=== PATIENT | female | born 2000 | race Caucasian/White ===

== ENCOUNTER 2020-06-23 22:49 | Emergency (ER) | payer OTHER, SELFPAY ==
[2020-06-23 22:51] VITALS: BP 159/93; PULSE 103; RESP 16; TEMP 36.4; O2SAT 100
--- NOTE | 2020-06-23 23:11 | ED.BACK ---
HPI - Back Pain/Injury General Chief Complaint: Back Pain/Injury Stated Complaint: sciatica Time Seen by Provider: 06/23/20 23:02 History of Present Illness HPI Narrative: 19 yo female w/ h/o sciatica presents to the ED for sciatica. She reports that she recently finished physical therapy for sciatica and her symptoms have returned. She has pain in the right buttock radiating down the back of the leg. mild tingling. No weakness, fever, chills, trauma. Related Data Allergies Allergy/AdvReac Type Severity Reaction Status Date / Time No Known Allergies Allergy Verified 07/31/19 13:14 Review of Systems Review of Systems: All systems reviewed & are unremarkable except as noted in HPI and below Constitutional: Constitutional: Denies chills, Denies fever(s) and Denies weakness Cardiovascular: Cardiovascular: Denies chest pain Respiratory: Respiratory: Denies dyspnea Gastrointestinal: Gastrointestinal: Denies nausea and Denies vomiting Musculoskeletal: Musculoskeletal: Reports back pain Neurologic: Denies dizziness and Denies weakness [facility] Past Medical History Medical History (Updated 06/23/20 @ 23:21 by Carlos Purvis MD) Sciatica Social History Social History (Updated 06/23/20 @ 23:19 by Carlos Purvis MD) Smoking status: Never smoker Exam Const: General: healthy appearing, no acute distress and alert Orientation/consciousness: patient oriented x3 HENMT: Head: normal to inspection Neck: Neck: normal visual inspection and no lymphadenopathy Chest: Chest palpation & inspection: no tenderness Resp: Effort & Inspection: normal respiratory effort Auscultation: clear to auscultation bilaterally, no rales, no rhonchi and no wheezes Cardio: Jugular venous distension: no JVD Rate: regular rate Rhythm: regular rhythm Heart sounds: no murmurs GI: Inspection: non-distended GI Palp: Yes Soft to palpation and No Tenderness to palpation present (GI) Skin: General skin exam: normal color Neuro: General: patient oriented x3, moves all extremities, no focal motor deficits and CN's II-XI intact bilaterally Speech: normal speech Gait exam (Neuro): Normal gait present Extrem: General: no edema Psych: Appearance: well kempt Affect: normal affect Course Vital Signs Vital signs: Vital Signs Temperature 36.4 C L 06/23/20 22:51 Pulse Rate 103 H 06/23/20 22:51 Respiratory Rate 16 06/23/20 22:51 Blood Pressure 159/93 H 06/23/20 22:51 Pulse Oximetry 100 06/23/20 22:51 Temperature 36.4 C L 06/23/20 22:51 Pulse Rate 103 H 06/23/20 22:51 Respiratory Rate 16 06/23/20 22:51 Blood Pressure 159/93 H 06/23/20 22:51 Pulse Oximetry 100 06/23/20 22:51 MDM - Back Pain/Injury Differential Diagnosis Differential diagnosis: Likely sciatica Medical Records Attestation: I reviewed the patient's medical records. Lab Data Attestation: I reviewed the patient's lab results. Discharge Plan Discharge Clinical Impression: Sciatica Qualifiers: Laterality: right Qualified Code(s): M54.31 - Sciatica, right side Patient Disposition: Home, Self-Care Condition: Stable Instructions: Sciatica (ED) Prescriptions: New methylprednisolone [Medrol (Manfred)] 4 mg tablets,dose pack See Rx Instructions .ROUTE .COMPLEX Qty: 21 RF: 0 cyclobenzaprine 10 mg tablet 10 mg PO TID PRN (Reason: muscle spasm) Qty: 20 RF: 0 ibuprofen 600 mg tablet 600 mg PO QID PRN (Reason: pain) Qty: 30 RF: 0 No Action amoxicillin 500 mg tablet 500 mg PO Q12H 10 Days Qty: 20 RF: 0 Follow-up/Referrals: UNKNOWN,DOCTOR [Non-Staff] -
[2020-06-24 00:50] VITALS: BP 128/88; PULSE 78; RESP 19; O2SAT 99
[2020-06-24] MEDS: KETOROLAC (*BKC) 60 MG/2 ML VIAL IM (00:55)
[2020-06-24] MEDS: CYCLOBENZAPRINE HCL 10 MG TABLET PO (00:56)
== END 2020-06-24 00:50 | disposition home or self-care (01) ==
LOC: ANHED 23:24
PROVIDERS: Emergency Provider Emergency Medicine; PCP Physician Assistant
DX: M54.31 Sciatica, right side (principal)
CPT/HCPCS: 96372; 99284; A9270; J1100; J1885

== ENCOUNTER 2020-06-29 18:42 | Outpatient (CLI) | payer OTHER, SELFPAY ==
--- NOTE | ~2020-06-29 | XR_ITS ---
XR lumbar spine 2-3V 06/29/2020 19:04 Indication: Low back pain Procedure: 4 views lumbar spine Comparison: No prior studies for comparison. Findings: There is mild disc narrowing at L4-5 and L5-S1. Vertebral body heights are maintained. Pedi cles intact. Sacral foramen are symmetric. No acute fracture or traumatic malalignment. No evidence f or spondylolisthesis. Impression: 1: Mild lumbar spondylosis. Reviewed, dictated and finalized at location A. Impression: 1: Mild lumbar spondylosis.
== END 2020-06-29 18:43 | disposition home or self-care (01) ==
PROVIDERS: PCP Physician Assistant; Visit Provider Physician Assistant
DX: M54.5 Low back pain (principal); M47.816 Spondylosis without myelopathy or radiculopathy, lumbar region
CPT/HCPCS: 72100

== ENCOUNTER 2020-07-10 10:59 | Emergency (ER) | payer OTHER, SELFPAY ==
[2020-07-10 11:10] VITALS: BP 134/79; PULSE 97; RESP 16; TEMP 35.9; O2SAT 100
--- NOTE | 2020-07-10 11:15 | ED.URI ---
HPI - URI/Sore Throat General Chief Complaint: Upper Respiratory Infection Stated Complaint: Sore throat Time Seen by Provider: 07/10/20 11:15 Source: patient Mode of arrival: ambulatory Limitations: no limitations History of Present Illness HPI Narrative: Kaylin Isbell is a 19 yo female with PMH of low back pain who comes to express care with runny nose, sinus pressure, and sore throat. that started this AM. States that she gets strep often and wants to catch it early Related Data Allergies Allergy/AdvReac Type Severity Reaction Status Date / Time No Known Allergies Allergy Verified 07/10/20 11:26 Review of Systems Review of Systems: Narrative: CONSTITUTIONAL: Denies fever, chills, sweats. EYES: Denies visual changes, redness, discharge. ENT:has rhinorrhea, has congestion, has sore throat, otalgia. CARDIOVASCULAR: Denies chest pain, palpitations, edema. RESPIRATORY: Denies dyspnea, wheezing, cough GASTROINTESTINAL: Denies abdominal pain, nausea, vomiting, diarrhea. GENITOURINARY: Denies dysuria, hematuria, abnormal discharge SKIN: Denies rash or itching. NEUROLOGIC: Denies numbness, or focal weakness. PSYCHIATRIC: Denies anxiety or depression. [facility] Past Medical History Medical History (Updated 07/10/20 @ 11:26 by Yesenia Dickey CNP) Sciatica Family History Family History Other No acute medical problems Social History Social History (Updated 07/10/20 @ 11:18 by Yesenia Dickey CNP) Smoking status: Never smoker Alcohol intake: never Comments At time of signature, I agree with nursing past medical, surgical, social and family history. There is no relevant family history pertinent to the presenting complaint. Exam Narrative: Exam Narrative: GENERAL: This is a well-nourished, well-developed patient, in mild distress. HEAD: normocephalic, atraumatic. EYES: Sclera clear/white. Vision is grossly intact. EARS: External ears normal, auditory canals clear and without drainage, TMs normal without perforation. Fluid behind L TM. Hearing grossly intact. NOSE: External nose normal without nasal discharge, nares without redness, no rhinorrhea. THROAT: Mucous membranes moist, posterior pharynx erythema, bilateral tonsilar edema NECK: Neck supple, non-tender,swallow easily CARDIOVASCULAR: Regular rate and rhythm without murmurs, gallops, or rubs. RESPIRATORY: Clear to auscultation. Breath sounds equal bilaterally. No wheezes, rales, or rhonchi. GASTROINTESTINAL: Abdomen soft, SKIN: warm, intact with no suspicious lesions or rash, good texture and turgor. NEURO: awake, alert, and oriented to person, place and time. There were no obvious focal neurologic abnormalities. Steady gait EXTREMITIES: Normal range of motion. BACK: Nontender without deformity Course Course Emergency Course: Patient comes to express care with sore throat, pain on swallowing, no fever Strep test negative ; sent forculture- started on amoxicillin and prednisone- patient teaching on infection control Follow-up with PCP Vital Signs Vital signs: Vital Signs Temperature 96.6 F L 07/10/20 11:10 Pulse Rate 97 07/10/20 11:10 Respiratory Rate 16 07/10/20 11:10 Blood Pressure 134/79 07/10/20 11:10 Pulse Oximetry 100 07/10/20 11:10 Temperature 96.6 F L 07/10/20 11:10 Pulse Rate 97 07/10/20 11:10 Respiratory Rate 16 07/10/20 11:10 Blood Pressure 134/79 07/10/20 11:10 Pulse Oximetry 100 07/10/20 11:10 MDM - URI/Sore Throat Differential Diagnosis Differential diagnosis: Likely sinusitis, pharyngitis and other Lab Data Labs: Strep Screen Presumptive Negative *(Reference Range: Negative)* Discharge Plan Discharge Clinical Impression: Pharyngitis Qualifiers: Pharyngitis/tonsillitis etiology: unspecified etiology Qualified Code(s): J02.9 - Acute pharyngitis, unspecified Patie
== END 2020-07-10 11:32 | disposition home or self-care (01) ==
PROVIDERS: Emergency Provider Nurse Practitioner; PCP Physician Assistant
DX: J02.9 Acute pharyngitis, unspecified (principal)
CPT/HCPCS: 87081; 87880; 99213; G0463

== ENCOUNTER 2021-01-30 15:20 | Emergency (ER) | payer OTHER, SELFPAY ==
--- NOTE | 2021-01-30 15:26 | ED.PEDHENT ---
HPI - Pediatric HENT General Chief complaint: Upper Respiratory Infection Stated complaint: Sore Throat Source: patient and RN notes reviewed Limitations: no limitations History of Present Illness HPI Narrative: The patient, who works in fast food, presents with sore throat. Patient notes about 1-week history of sore throat, for which she took a Covid test and was off work for couple days [test was negative]. No fever, hoarseness, trismus; no loss of taste/smell, CP, sneezing/wheezing, S OB, calf pain/edema, rash. Symptoms are mild, worse upon eating Related Data Allergies Allergy/AdvReac Type Severity Reaction Status Date / Time No Known Allergies Allergy Verified 07/10/20 11:26 Pediatric Review of Systems Review of Systems: General/Constitutional: No weight loss,fever Eyes: N0: Redness,discharge Ears/Nose/Throat: No: Epistaxis,ear discharge Respiratory: Denies: Hemoptysis Gastrointestinal: No Vomiting, Bleeding-rectal Skin: No Lumps, eruption Neurologic: No Focal Weakness,Sz Hematologic: Denies: Petechiae/Purpura Psychiatric: No: Suicida ideationl All Other Systems: Reviewed and Negative PMFSH Past Medical History Medical History (Updated 01/30/21 @ 15:50 by Mahin Pinedo MD) Sciatica Family History Family History Other No acute medical problems Social History Social History (Updated 07/10/20 @ 11:18 by Yesenia Dickey CNP) Smoking status: Never smoker Alcohol intake: never Comments At time of signature, agree with nursing past medical, surgical, social and family history. There is no relevant family history pertinent to the presenting complaint Pediatric Exam Narrative: Physical exam: General Appearance: Well appearing, overweight/well nourished EYE: PERRLA, Conjunctiva clear Ears: Auditory canal normal, TM normal Nose: Rhinorrhea, Mucousal erythema Mouth/Throat: MM moist, Uvula midline, Pharyngeal erythema without exudate, but with tonsillar stones Neck: Supple, No adenopathy Respiratory: No respiratory distress, Breath sounds equal, Clear to auscultation Cardiovascular: RRR, No JVD Musculoskeletal: Non tender, Normal strength Skin: Warm, Dry; multiple piercings Neurological: A&O x3, CN II-XII intact Psychiatric: Normal mood, Normal affect Course Vital Signs Vital signs: Vital Signs Temperature 97.4 F L 01/30/21 15:29 Pulse Rate 90 01/30/21 15:29 Respiratory Rate 16 01/30/21 15:29 Blood Pressure 140/84 01/30/21 15:29 Pulse Oximetry 100 01/30/21 15:29 Temperature 97.4 F L 01/30/21 15:36 Pulse Rate 90 01/30/21 15:36 Respiratory Rate 16 01/30/21 15:36 Blood Pressure 140/84 01/30/21 15:36 Pulse Oximetry 100 01/30/21 15:36 Medical Decision Making Vital Signs Vital Signs: Vital Signs Temperature 97.4 F L 01/30/21 15:29 Pulse Rate 90 01/30/21 15:29 Respiratory Rate 16 01/30/21 15:29 Blood Pressure 140/84 01/30/21 15:29 Pulse Oximetry 100 01/30/21 15:29 Temperature 97.4 F L 01/30/21 15:36 Pulse Rate 90 01/30/21 15:36 Respiratory Rate 16 01/30/21 15:36 Blood Pressure 140/84 01/30/21 15:36 Pulse Oximetry 100 01/30/21 15:36 Discharge Plan Discharge Clinical Impression: Odynophagia Pharyngitis Qualifiers: Pharyngitis/tonsillitis etiology: unspecified etiology Qualified Code(s): J02.9 - Acute pharyngitis, unspecified Patient Disposition: Home, Self-Care Condition: Stable Instructions: Pharyngitis (ED) Prescriptions: New lidocaine HCl [Lidocaine Viscous] 2 % solution 5 ml MUCOUS MEM QID PRN (Reason: pain) Qty: 100 RF: 0 azithromycin 250 mg tablet See Rx Instructions .ROUTE .COMPLEX Qty: 6 RF: 0 Follow-up/Referrals: PHYSICIAN NOT ON STAFF,NONSTAFF [Primary Care Provider] -
[2021-01-30 15:29] VITALS: BP 140/84; PULSE 90; RESP 16; TEMP 36.3; O2SAT 100
[2021-01-30 15:36] VITALS: BP 140/84; PULSE 90; RESP 16; TEMP 36.3; O2SAT 100
[2021-02-01 17:41] LABS: SARS-CoV-2 RNA PCR Negative
== END 2021-01-30 15:51 | disposition home or self-care (01) ==
PROVIDERS: Emergency Provider Emergency Medicine
DX: J02.9 Acute pharyngitis, unspecified (principal); Z20.822 Contact with and (suspected) exposure to COVID-19
CPT/HCPCS: 99213; C9803; G0463; U0003; U0005

== ENCOUNTER 2021-05-11 16:50 | Outpatient (CLI) | payer MEDICAID, SELFPAY ==
--- NOTE | ~2021-05-11 | MR_ITS ---
EXAMINATION: MR brain/brain stem wo/w con DATE: 05/11/2021 18:07 INDICATION: Multiple sclerosis. TECHNIQUE: Magnetic resonance imaging (MRI) of the brain and brainstem was performed without and with 15 mL MultiHance intravenous contrast. Sequences included sagittal and axial T1-weighted FLAIR, axia l T1-weighted FSE, axial diffusion-weighted FS EPI, sagittal T2-weighted FLAIR, axial T2*-weighted GR E, axial T2-weighted FLAIR Propeller, and axial T2-weighted Propeller. Postcontrast sequences include d axial, coronal, and sagittal T1-weighted FSE. Apparent diffusion coefficient (ADC) maps were create d. COMPARISON: None. FINDINGS: There are approximately 7 total lesions of increased T2-weighted signal intensity in the br ain. Of these lesions, none abut the lateral ventricles, 3 are juxtacortical, and 3 are infratentoria l. The largest infratentorial lesion involves the posterior [place], superior cerebellar peduncles and r ight middle cerebellar peduncle, cerebellar white matter, and cerebellar vermis. Four lesions includi ng this lesion enhance. There is no acute ischemic infarct or intracranial hemorrhage. The ventricles are normal in size. There is mild mucosal thickening in the paranasal sinuses. The orbits are normal . The mastoid air cells are normal. IMPRESSION: 1. Multifocal brain disease, consistent with multiple sclerosis. Reviewed, dictated and finalized at location A.
[2021-05-11 17:31] LABS: Estimated Glomerular Filt Rate > 60
== END 2021-05-11 16:51 | disposition home or self-care (01) ==
LOC: ANHIMG 16:51
PROVIDERS: Visit Provider Physician Assistant
DX: G35 Multiple sclerosis (principal)
CPT/HCPCS: 70553; A9577

== ENCOUNTER 2021-10-11 16:26 | Emergency (ER) | payer OTHER, MEDICAID, SELFPAY ==
[2021-10-11 16:42] VITALS: BP 130/77; PULSE 83; RESP 16; TEMP 36.5; O2SAT 99
--- NOTE | 2021-10-11 16:50 | ED.FEMALEGU ---
HPI - Female Genitourinary General Chief complaint: Urogenital-Female Stated complaint: uti Time Seen by Provider: 10/11/21 16:53 Source: patient and RN notes reviewed Limitations: no limitations History of Present Illness HPI Narrative: 21-year-old female presented for complaint of urinary urgency. She states she feels that after she voids she needs to go again For over 1 month. Denies nausea, vomiting, diarrhea, fever, chills, hematuria or flank pain. She did take Azo yesterday. denies concern for STD. Related Data Home Medications Medication Instructions Recorded Confirmed dimethyl fumarate 240 mg PO DAILY 10/11/21 10/11/21 Allergies Allergy/AdvReac Type Severity Reaction Status Date / Time No Known Allergies Allergy Verified 10/11/21 16:38 Review of Systems Review of Systems: CONSTITUTIONAL: Denies body aches, fever, chills, or sweats. CARDIOVASCULAR: Denies chest pain, palpitations, or edema. RESPIRATORY: Denies cough or dyspnea. GASTROINTESTINAL: Denies abdominal pain, nausea, vomiting, or diarrhea. GENITOURINARY: Reports urgency,denies hematuria, flank pain SKIN: Denies rash, itching, or wounds. MUSCULOSKELETAL: Denies back pain or myalgia. [facility] Past Medical History Medical History (Updated 10/11/21 @ 16:52 by Yamile Padgett APRN) Sciatica Family History Family History Other No acute medical problems Social History Social History Smoking status: Never smoker Alcohol intake: never Comments At time of signature, I have reviewed and agree with nursing past medical, surgical, social and family history unless otherwise noted. Please see nursing chart for further information. There is no relevant family history pertinent to the presenting complaint Exam Narrative: GENERAL: Well-appearing and in no acute distress. HEAD: Normocephalic EYES: EOMI. . ENT: Mucous membranes pink and moist. NECK: Normal AROM. Supple. CHEST: No respiratory distress. Clear to auscultation. HEART: Regular rate and rhythm. ABDOMEN: Soft, nontender, nondistended, normal active bowel sounds. No CVA tenderness MUSCULOSKELETAL: No bony tenderness. SKIN: Warm, dry, no rash. NEURO: No focal deficits. Alert and oriented x3. Gait steady. PSYCH: Normal affect. No signs of depression or anxiety. Course Course Emergency Course: Patient is aware of diagnosis, understands and agrees to treatment plan. Anticipatory guidance given. Patient agrees to follow-up as directed and is aware of reasons to seek care at the emergency department. Portions of this record may have been created with voice recognition software Level of Care: Express Care Visit Vital Signs Vital signs: Vital Signs Temperature 97.7 F 10/11/21 16:42 Pulse Rate 83 10/11/21 16:42 Respiratory Rate 16 10/11/21 16:42 Blood Pressure 130/77 10/11/21 16:42 Pulse Oximetry 99 10/11/21 16:42 Temperature 97.7 F 10/11/21 16:42 Pulse Rate 83 10/11/21 16:42 Respiratory Rate 16 10/11/21 16:42 Blood Pressure 130/77 10/11/21 16:42 Pulse Oximetry 99 10/11/21 16:42 Reviewed MDM - Female Genitourinary Differential Diagnosis Differential diagnosis: Likely urinary tract infection, bacterial vaginosis, cervicitis and cystitis Lab Data Attestation: I reviewed the patient's lab results. Labs: Urine Glucose Negative Reference Range: Negative Urine Bilirubin Negative Reference Range: Negative Urine Ketone Negative Reference Range: Negative Urine Specific [place] 1.030 Reference Range:1.001-1.035 Urine Blood Neg
== END 2021-10-11 17:10 | disposition home or self-care (01) ==
PROVIDERS: Emergency Provider Nurse Practitioner Family; PCP Physician Assistant
DX: N39.0 Urinary tract infection, site not specified (principal); G35 Multiple sclerosis
CPT/HCPCS: 81003; 87077; 87086; 87186; 99213; G0463

== ENCOUNTER 2022-02-14 11:49 | Outpatient (CLI) | payer OTHER, MEDICAID, SELFPAY ==
--- NOTE | ~2022-02-14 | XR_ITS ---
XR lumbar spine 2-3V DATE: 02/14/2022 12:21 INDICATION: Mid low back pain TECHNIQUE: AP, lateral, coned lateral lumbosacral views COMPARISON: 06/29/2020 lumbar spine FINDINGS: There is normal alignment lumbar spine. No fracture or bone destruction or spondylolisthesi s. The included lower thoracic and lumbar pedicles are intact. There is mild loss of interspace height at L5-S1, stable since 06/21/2020. The sacroiliac joints are intact. IMPRESSION: Mild loss of interspace height at L5-S1, stable since 06/21/2020 Reviewed, dictated and finalized at location A.
== END 2022-02-14 11:50 | disposition home or self-care (01) ==
PROVIDERS: PCP Physician Assistant; Visit Provider Physician Assistant
DX: M54.50 Low back pain, unspecified (principal)
CPT/HCPCS: 72100

== ENCOUNTER 2022-05-23 16:27 | Emergency (ER) | payer OTHER, MEDICAID, SELFPAY ==
[2022-05-23 16:40] VITALS: BP 140/78; PULSE 97; RESP 16; TEMP 36.9; O2SAT 100
--- NOTE | 2022-05-23 17:40 | ED.GENADULT ---
HPI - General Adult General Chief complaint: Upper Respiratory Infection Stated complaint: sore throat Source: patient Mode of arrival: ambulatory Limitations: no limitations History of Present Illness HPI narrative: Patient presents for evaluation of sore throat. She indicates she developed a scratchy throat yesterday. Today she noticed a burning sensation when she swallowed. She denies any fever, chills, nausea, vomiting, diarrhea. She has an occasional cough but thinks it is a result of irritation in the back of her throat. She has some generalized fatigue which is chronic and she associates with her MS. Several family members have fever or respiratory symptoms. She is not taking medications to assist with her symptoms. No personal hx of COVID. She has received both vaccination. She does use an electronic cigarette. No additional complaints or concerns Related Data Allergies Allergy/AdvReac Type Severity Reaction Status Date / Time No Known Allergies Allergy Verified 10/11/21 16:38 Review of Systems Review of Systems: CONSTITUTIONAL: Reports chronic fatigue, unchanged from baseline. Denies fever, chills, or sweats. EYES: Denies visual changes, redness, or discharge. ENT: Reports sore throat. Denies rhinorrhea, congestion, or otalgia. CARDIOVASCULAR: Denies chest pain, palpitations, or edema. RESPIRATORY: Reports occasional cough. Denies dyspnea. GASTROINTESTINAL: Denies abdominal pain, nausea, vomiting, or diarrhea. GENITOURINARY: Denies dysuria or hematuria. SKIN: Denies rash or itching. MUSCULOSKELETAL: Denies back pain, joint pain, or myalgia. NEUROLOGIC: Denies headache, numbness, dizziness, or weakness. PSYCHIATRIC: Denies anxiety or depression. [facility] Past Medical History Medical History Multiple sclerosis Sciatica Surgical History Surgical History No pertinent past surgical history Family History Family History Mother Family history non-contributory Other No acute medical problems Social History Social History Smoking status: Current every day smoker Tobacco type: e-cigarettes/vaping Alcohol intake: never Living arrangements: with family Gender identity (if verbalized by the patient): Female Spiritual care concerns: No Exam Narrative: GENERAL: Well-appearing, well-nourished, and in no acute distress. HEAD: Normocephalic, atraumatic. EYES: PERRLA and EOMI. ENT: Nares clear, no rhinorrhea or epistaxis. Mucous membranes moist. Mild bilateral tonsillar enlargement without erythema or exudate. Uvula midline. Bilateral TMs pearly torre nonbulging NECK: Supple. No adenopathy or masses. No carotid bruits or JVD CHEST: Clear to auscultation. No respiratory distress. No wheezes rales or rhonchi HEART: Regular rate and rhythm. No murmur heard. Normal peripheral pulses. ABDOMEN: Soft, nontender, nondistended, normal active bowel sounds. EXTREMITIES: Normal range of motion. No edema. SKIN: Warm, dry, no rash. NEURO: No focal deficits. Alert and oriented x3. PSYCH: Normal mood and affect. Course Course Emergency Course: This is a 21-year-old female who presented for evaluation of sore throat, with recent sick exposures by several family members. Strep and COVID were negative. Exam is consistent with acute viral syndrome. Will discharge with ibuprofen and Cepacol. Follow-up outpatient for further evaluation and treatment and go to the ER for worsening symptoms. Patient is in agreement with plan of care Level of Care: Express Care Visit Vital Signs Vital signs: Vital Signs Temperature 36.9 C 05/23/22 16:40 Pulse Rate 97 05/23/22 16:40 Respiratory Rate 16 05/23/22 16:40 Blood Pressure 140/78 05/23/22 16:40 Pulse Oximetry 100
== END 2022-05-23 18:17 | disposition home or self-care (01) ==
PROVIDERS: Emergency Provider Nurse Practitioner; PCP Physician Assistant
DX: B34.9 Viral infection, unspecified (principal); Z20.822 Contact with and (suspected) exposure to COVID-19; F17.290 Nicotine dependence, other tobacco product, uncomplicated; G35 Multiple sclerosis
CPT/HCPCS: 87081; 87426; 87880; 99213; C9803; G0463

== ENCOUNTER 2022-07-10 15:07 | Emergency (ER) | payer OTHER, MEDICAID, SELFPAY ==
[2022-07-10 15:18] VITALS: BP 137/76; PULSE 104; RESP 16; TEMP 37.1; O2SAT 100
--- NOTE | 2022-07-10 15:32 | ED.URI ---
HPI - URI/Sore Throat General Chief Complaint: Upper Respiratory Infection Stated Complaint: Sore Throat Time Seen by Provider: 07/10/22 15:32 Source: patient, RN notes reviewed and old records reviewed Mode of arrival: ambulatory Limitations: no limitations History of Present Illness HPI Narrative: 21-year-old female presents to the [facility] the [facility] with complaints of a sore throat for 2 days. Also reports tenderness to the left side of her neck states it is her lymph node. Has taken ibuprofen 1 time Related Data Home Medications Medication Instructions Recorded Confirmed etonogestrel 0.12 mg-ethinyl 1 vag ring vaginal MONTHLY 07/10/22 07/10/22 estradiol 0.015 mg/24 hr vaginal ring (EluRyng) Allergies Allergy/AdvReac Type Severity Reaction Status Date / Time No Known Allergies Allergy Verified 07/10/22 15:13 Review of Systems Review of Systems: All systems reviewed & are unremarkable except as noted in HPI and below Constitutional: Constitutional: Reports no additional constitutional complaints, Denies chills and Denies fever(s) Eyes: Eyes: Reports no additional eye complaints ENT: Reports as per HPI and Reports sore throat Cardiovascular: Cardiovascular: Reports no additional cardiovascular complaints Respiratory: Respiratory: Reports no additional respiratory complaints Gastrointestinal: Gastrointestinal: Reports no additional gastrointestinal complaints Musculoskeletal: Musculoskeletal: Reports no additional musculoskeletal complaints Integumentary/Breasts: Skin/Breast: Reports system reviewed and no additional complaints, except as docu Neurologic: Reports system reviewed and no additional complaints, except as documented Psychiatric: Psychiatric: Reports no additional psychiatric complaints Allergic/Immunologic: Allergic/Immunologic: Reports no additional allergic/immunologic complaints [facility] Past Medical History Medical History Multiple sclerosis Sciatica Surgical History Surgical History No pertinent past surgical history Family History Family History Mother Family history non-contributory Other No acute medical problems Social History Social History Smoking status: Current every day smoker Tobacco type: e-cigarettes/vaping Alcohol intake: never Gender identity (if verbalized by the patient): Female Spiritual care concerns: No Comments At the time of my signature, I reviewed and agree with the nursing past medical, surgical, social, and family history. There is no relevant family history pertinent to the patient complaint. Exam Const: General: healthy appearing, comfortable, no acute distress, well developed, alert and well nourished Nutritional Appearance: well nourished Orientation/consciousness: patient oriented x3 Limitations: no limitations HENMT: Head: normal to inspection Ears: external ears normal, TM's normal bilaterally and EAC's normal Face/Nose/Sinus: Normal external nose present and Normal nares present Face and sinus: normal facial exam Mouth: Yes Normal oral and palatal mucosa present, Yes lip normal and Yes moist mucous membranes Throat: posterior oropharynx normal and uvula midline Eyes: General: appearance normal, both eyes and all related structures Conjunctivae: conjunctivae normal Pupils: Equal, round and reactive pupils present Neck: Neck: normal visual inspection, full ROM, no lymphadenopathy (Reports tenderness along the left side without erythema or swelling) and no meningeal signs Chest: Chest palpation & inspection: normal inspection of the chest Resp: Effort & Inspection: normal respiratory effort and no use of accessory muscles Auscultation: clear to auscultation bilaterally, no crackles, no rales, no rhonchi and n
== END 2022-07-10 16:20 | disposition home or self-care (01) ==
PROVIDERS: Emergency Provider Nurse Practitioner; PCP Physician Assistant
DX: J02.9 Acute pharyngitis, unspecified (principal); F17.290 Nicotine dependence, other tobacco product, uncomplicated; G35 Multiple sclerosis
CPT/HCPCS: 87081; 87880; 99213; G0463

== ENCOUNTER 2025-03-08 17:05 | Emergency (ER) | payer OTHER, MEDICAID, SELFPAY ==
[2025-03-08 17:13] VITALS: BP 146/86; PULSE 88; RESP 14; TEMP 36.6; O2SAT 100
--- NOTE | 2025-03-08 17:18 | ED.URI ---
HPI - URI/Sore Throat General Chief Complaint: Upper Respiratory Infection Stated Complaint: Cough Time Seen by Provider: 03/08/25 17:16 Source: patient and RN notes reviewed Mode of arrival: ambulatory Limitations: no limitations History of Present Illness HPI Narrative: [age] year old female with history of multiple sclerosis presents with concern for one-week history of cough. She reports runny nose and scratchy throat. She denies fever, body aches, chills, sweats. Reports cough is persistent, she has been taking it multi symptom Mucinex without relief. MD elicited complaint: cough Related Data Home Medications ?Medication ?Instructions ?Recorded ?Confirmed ?Last Taken ?Type etonogestrel 0.12 mg-ethinyl 1 vag ring vaginal MONTHLY 07/10/22 07/10/22 Unknown History estradiol 0.015 mg/24 hr vaginal ring (EluRyng) Allergies Allergy/AdvReac Type Severity Reaction Status Date / Time No Known Allergies Allergy Verified 03/08/25 17:16 Review of Systems Review of Systems: CONSTITUTIONAL: Denies malaise, chills, sweats, or fever. EYES: Denies visual changes, redness, or discharge. ENT: Reports rhinorrhea. Denies congestion, sinus pain, otalgia and sore throat. CARDIOVASCULAR: Denies chest pain, palpitations, or edema. RESPIRATORY: Reports persistent cough. Denies dyspnea. GASTROINTESTINAL: Denies abdominal pain, nausea, vomiting, diarrhea SKIN: Denies rash or itching. MUSCULOSKELETAL: Denies myalgia. NEUROLOGIC: Denies headache. All systems reviewed & are unremarkable except as noted in HPI and below PMFSH Past Medical History Medical History Multiple sclerosis Sciatica Surgical History Surgical History No pertinent past surgical history Family History Family History Mother Family history non-contributory Other No acute medical problems Social History Social History Smoking status: Current every day smoker Tobacco type: e-cigarettes/vaping Alcohol intake: never Living arrangements: with family Gender identity (if verbalized by the patient): Female Spiritual care concerns: No Comments At time of signature, agree with nursing past medical, surgical, social and family history. There is no relevant family history pertinent to the presenting complaint Exam Narrative: GENERAL: Well-appearing, well-nourished, and in no acute distress. HEAD: Normocephalic EYES: PERRLA, conjunctivae clear ENT: Nares clear. Mucous membranes moist. TM pearly torre with sharp light reflex bilaterally; no tragal tenderness. Oropharynx not erythematous without lesions. Tonsils not enlarged and without exudate, no drooling, no hoarseness, no trismus, uvula midline. NECK: Supple. No lymphadenopathy CHEST: Clear to auscultation, breath sounds equal. No wheezing, rhonchi, rales, or stridor. No respiratory distress, speaks in full sentences. Cough noted HEART: Regular rate and rhythm. No murmur heard. SKIN: Warm, dry, no rash. NEURO: Alert and oriented x3. PSYCH: Normal mood and affect Course Course Emergency Course: Patient is aware of diagnosis, understands and agrees to treatment plan. Anticipatory guidance given. Patient agrees to follow-up as directed and is aware of reasons to seek care at the emergency department. Portions of this record may have been created with voice recognition software Level of Care: Express Care Visit Vital Signs Vital signs: Vital Signs Temperature 98 F 03/08/25 17:13 Pulse Rate 88 03/08/25 17:13 Respiratory Rate 14 03/08/25 17:13 Blood Pressure 146/86 H 03/08/25 17:13 Pulse Oximetry 100 03/08/25 17:13 Oxygen Delivery Room Air 03/08/25 17:13 Temperature 98 F 03/08/25 17:13 Pulse Rate 88 03/08/25 17:13 Respiratory Rate 14 03/08/25 17:13 Blood Pressure 146/86 H 03/08/25 17:13 Pulse Oximetry 100 03/08/25 17:13 Oxygen Delivery Room Air 03/08/25 17:13 Reviewed. MDM - URI/Sore Throat MDM Narrative Medical decision making narrative: Differential diagnosis considered: Young virus, strep pharyngitis, allergic rhinitis, upper respiratory tract infection, sinusitis, rhinosinusitis, nasopharyngitis. viral pharyngitis, otitis media, otitis externa, pneumonia, bronchitis, viral cough syndrome, viral syndrome, and influenza. Exam findings show no acute concerns or changes; patient is non-toxic appearing and is in no distress. Patient is appropriate for outpatient treatment and follow-up. Lab Data Attestation: I reviewed the patient's lab results. Critical Care Time Critical Care Time Critical Care Time: No Discharge Plan Discharge Clinical Impression: Bronchitis Patient Disposition: Home Condition: Stable Instructions: Acute Bronchitis (ED) Additional Instructions: Viral illness may last between 7-21 days; antibiotics do not cure viral illness and are NOT recommended at this time. Recommend antihistamine such as Benadryl at night time and Zyrtec or Antonella during the day Cough syrup may cause drowsiness; avoid driving or take it at night time. Also, recommend symptomatic treatment includes: rest, fluids, and increase humidity of the air at home. Recommend Acetaminophen as directed on the bottle to reduce fever, pain, headache. Avoid smoking/second-hand smoke. Please schedule a follow-up visit with your personal physician for further evaluation and treatment within 3-5days. Including recheck and discussion of your blood pressure. If your symptoms persist, change or worsen significantly before you can contact your personal physician then please, without delay, go to the emergency department for further evaluation. Patient Language: Burkinan Prescriptions: New promethazine-DM 6.25-15 mg/5 mL syrup 5 ml PO Q4-6H PRN (Reason: cough) Qty: 120 0RF methylprednisolone [Medrol (Manfred)] 4 mg tablets,dose pack See Rx Instructions .ROUTE .COMPLEX Qty: 21 0RF Rx Instructions: orally per package directions No Action etonogestrel-ethinyl estradiol [EluRyng] 0.12-0.015 mg/24 hr ring 1 vag ring VAGINAL MONTHLY Follow-up/Referrals: Gina,PAULINE Mcfadden [Primary Care Provider] - Stand Alone Forms: Work/School Release IP Time of Disposition: 17:24
== END 2025-03-08 17:30 | disposition home or self-care (01) ==
PROVIDERS: Emergency Provider Nurse Practitioner; PCP Physician Assistant
DX: J40 Bronchitis, not specified as acute or chronic (principal); G35 Multiple sclerosis; F17.290 Nicotine dependence, other tobacco product, uncomplicated
CPT/HCPCS: 99213; G0463